=== PATIENT | female | born 1950 ===

== ENCOUNTER 2022-02-21 14:46 | Outpatient (CLI) | payer MEDICARE, OTHER | END 2022-02-21 14:47 | disposition home or self-care (01) | LOC: LABBT 14:46 | PROVIDERS: ATTEND Anesthesiology | DX: Z20.822 Contact with and (suspected) exposure to COVID-19 (principal) | CPT/HCPCS: 87811 ==

== ENCOUNTER 2022-02-24 10:18 | Day surgery (SDC) | payer MEDICARE, OTHER ==
[2022-02-23 12:19] VITALS: BMI 29.0
[2022-02-24] MEDS ORDERED: Midazolam HCl 2 mg/2 ml Vial ONE (11:50)
[2022-02-24] MEDS ORDERED: fentaNYL Citrate/PF 100 MCG/2 ML SYRINGE ONE (11:51)
[2022-02-24] MEDS ORDERED: Lidocaine 1% PF 5 ML VIAL ONE (12:30)
[2022-02-24] MEDS ORDERED: PROPOFOL 200 MG/20 ML VIAL ONE (12:30)
== END 2022-02-24 14:27 | disposition home or self-care (01) ==
LOC: SDC/OP 10:18
PROVIDERS: ATTEND Anesthesiology
DX: M51.16 Intervertebral disc disorders with radiculopathy, lumbar region (principal); M48.061 Spinal stenosis, lumbar region without neurogenic claudication; I10 Essential (primary) hypertension; E78.5 Hyperlipidemia, unspecified; F17.210 Nicotine dependence, cigarettes, uncomplicated; Z79.890 Hormone replacement therapy; Z79.899 Other long term (current) drug therapy
CPT/HCPCS: 72148; J2250; J2704